=== PATIENT | male | born 1940 | race Caucasian/White ===

== ENCOUNTER 2022-06-20 11:41 | Inpatient (IN) | payer MEDICARE, OTHER ==
[~2022-06-20 11:41] MED LIST: Iopamidol 300 61% 100 ML VIAL FS ONE
[2022-06-20 12:46] LABS: #Monocytes 0.4 10x3/uL (0.0-1.1); #Neutrophils 7.4 10x3/uL (1.5-8.4); %Basophils 0.5 % (0.0-2.0); %Eosinophils 0.3 % (0.0-6.0); %Neutrophils 82.9 % (40.0-75.0); Hemoglobin 13.1 g/dL (13.5-17.5); Mean Corpuscular HGB CONC 34.7 g/dL (32.0-36.0); Mean Corpuscular Hemoglobin 30.8 pg (27.0-33.0); Mean Corpuscular Volume 88.9 fl (81.2-95.1); Mean Platelet Volume 9.9 fl (7.4-10.4); Platelet Count 242 10x3/uL (150-450); RBC Distribution Width 14.2 % (11.5-14.5); Red Blood Cell (RBC) Count 4.25 10x6/uL (4.32-5.72); White Blood Cell (WBC) Count 8.9 10x3/uL (3.5-10.5)
[2022-06-20] MEDS ORDERED: Ondansetron PF 4 MG/2 ML Vial ONE (12:58)
[2022-06-20 13:00] LABS: Bilirubin Neg (Negative); Blood, Urine 10 (Negative); Clarity Clear (Clear); Glucose, Urine (Dipstick) 250 mg/dL (Negative); Ketone, Urine 50 mg/dL (Negative); Leukocyte 100 (Negative); Nitrite Negative (Negative); Protein, Urine (Dipstick) 100 mg/dl (Neg-Trace); Urobilinogen Normal mg/dL (Less than 2); pH, Urine 6.5 (5.0-9.0)
[2022-06-20 13:03] LABS: ALT (SGPT) 37 U/L (8-55); AST (SGOT) 30 U/L (5-34); Albumin 4.7 g/dL (3.4-4.8); Alkaline Phosphatase 58 U/L (40-110); Anion Gap 24 mmol/L (10-20); BUN (Urea Nitrogen) 16 mg/dL (8.4-25.7); Bilirubin, Total 0.5 mg/dL (0.2-1.2); CK (CPK) 84 U/L (30-200); Calc. Creatinine Clearance 0 mL/min (70-130); Calcium 9.4 mg/dL (7.8-10.44); Carbon Dioxide 19 mmol/L (23-31); Chloride 96 mmol/L (98-107); Estimated GFR 73; Globulin 3.4 g/dL (2.4-3.5); Glucose 236 mg/dL (83-110); Lipase 45 U/L (8-78); Potassium 4.2 mmol/L (3.5-5.1); Protein, Total 8.1 g/dL (5.8-8.1); Sodium 135 mmol/L (136-145)
[2022-06-20 13:17] LABS: RBC/HPF 0-3 HPF (0-3); Squamous Epithelial 0-3 HPF (0-3)
[2022-06-20 13:19] LABS: Bacteria/HPF 2+ HPF (None Seen)
[2022-06-20] MEDS ORDERED: Vancomycin HCl 500 MG VIAL ONE (13:43)
[2022-06-20] MEDS ORDERED: Cefepime 2 GM VIAL ONE (13:43)
[2022-06-20] MEDS ORDERED: Dextrose 50% Abboject 50 ML SYRINGE SLOW IVP PRN (14:27)
[2022-06-20] MEDS ORDERED: HumaLOG 300 UNITS/3 ML VIAL SC PRN ×2 (14:27)
[2022-06-20] MEDS ORDERED: Ondansetron PF 4 MG/2 ML Vial IVP PRN (14:27)
[2022-06-20] MEDS ORDERED: Dextrose 5% in Water 1,000 ML IV PRN (14:27)
[2022-06-20] MEDS ORDERED: Ondansetron ODT 4 MG TAB PO PRN (14:27)
[2022-06-20] MEDS ORDERED: Electrolyte Replacement Protocol 1 EACH FS SCH (14:45)
[2022-06-20 15:32] LABS: Lactic Acid 5.4 mmol/L (0.5-2.2)
[2022-06-20 15:41] LABS: SARS-CoV-2 NAA Rapid Test DETECTED (NotDetected)
[2022-06-20] MEDS ORDERED: Benzonatate 100 MG CAP PO PRN (15:53)
[2022-06-20 16:33] VITALS: BMI 28.3
[2022-06-20] MEDS ORDERED: Ventolin HFA Inhaler 60 PUFF INHALER INH PRN (16:35)
[2022-06-20] MEDS: Sodium Chloride 0.9% 1,000 ML IV SCH ×2 (17:03→22:57)
[2022-06-20 20:32] LABS: Lactic Acid 3.2 mmol/L (0.5-2.2)
[2022-06-20] MEDS: Metoprolol Tartrate 25 MG TAB PO SCH (20:45)
[2022-06-20] MEDS: Nystatin Cream 15 GM TUBE TOP SCH (20:45)
[2022-06-20] MEDS: Cefepime 1 GM in Sodium Chloride 0.9% 100 ML IVPB SCH (20:45)
[2022-06-20] MEDS ORDERED: Famotidine/PF 20 mg/2ml Vial SLOW IVP SCH (21:00)
[2022-06-20] MEDS ORDERED: Cefepime 2 GM in Sodium Chloride 0.9% 100 ML IVPB SCH (21:00)
[2022-06-21] MEDS: Sodium Chloride 0.9% 1,000 ML IV SCH ×3 (04:02→16:03)
[2022-06-21 04:14] LABS: #Eosinphils 0.1 10x3/uL (0.0-0.5); #Monocytes 0.6 10x3/uL (0.0-1.1); #Neutrophils 4.3 10x3/uL (1.5-8.4); %Basophils 0.4 % (0.0-2.0); %Eosinophils 1.7 % (0.0-6.0); %Lymphocytes 28.7 % (18.0-47.0); %Monocytes 8.6 % (0.0-10.0); %Neutrophils 60.5 % (40.0-75.0); Hemoglobin 11.9 g/dL (13.5-17.5); Mean Corpuscular HGB CONC 34.8 g/dL (32.0-36.0); Mean Corpuscular Hemoglobin 30.5 pg (27.0-33.0); Mean Corpuscular Volume 87.7 fl (81.2-95.1); Mean Platelet Volume 9.7 fl (7.4-10.4); Platelet Count 248 10x3/uL (150-450); RBC Distribution Width 14.4 % (11.5-14.5); White Blood Cell (WBC) Count 7.2 10x3/uL (3.5-10.5)
[2022-06-21] MEDS: Acetaminophen 325 MG TAB PO PRN ×2 (04:21→19:50)
[2022-06-21 04:23] LABS: Anion Gap 15 mmol/L (10-20); BUN (Urea Nitrogen) 10 mg/dL (8.4-25.7); Calc. Creatinine Clearance 71 mL/min (70-130); Calcium 8.5 mg/dL (7.8-10.44); Carbon Dioxide 24 mmol/L (23-31); Chloride 101 mmol/L (98-107); Estimated GFR 87; Glucose 145 mg/dL (83-110); Potassium 3.6 mmol/L (3.5-5.1); Sodium 136 mmol/L (136-145)
[2022-06-21] MEDS ORDERED: Losartan 25 MG TAB PO SCH (04:45)
[2022-06-21] MEDS ORDERED: Vancomycin HCl 1 GM in Sodium Chloride 0.9% 250 ML 250 ML IVPB SCH (08:00)
[2022-06-21] MEDS ORDERED: Zinc Sulfate 220 MG CAP PO SCH (09:00)
[2022-06-21] MEDS ORDERED: Ascorbic Acid 500 mg Chewable Tablet PO SCH (09:00)
[2022-06-21] MEDS ORDERED: Cholecalciferol (Vitamin D3) 400 UNITS TAB PO SCH (09:00)
[2022-06-21] MEDS: Enoxaparin Sodium 40 MG/0.4 ML SYRINGE SC SCH (09:44)
[2022-06-21] MEDS: Cefepime 1 GM in Sodium Chloride 0.9% 100 ML IVPB SCH ×2 (09:44→21:56)
[2022-06-21] MEDS: Aspirin 81 mg Enteric Coated Tablet PO SCH (09:45)
[2022-06-21] MEDS: Metoprolol Tartrate 25 MG TAB PO SCH ×2 (09:45→21:56)
[2022-06-21] MEDS: Nystatin Cream 15 GM TUBE TOP SCH ×2 (10:19→22:00)
[2022-06-21 14:00] LABS: Lactic Acid 1.4 mmol/L (0.5-2.2)
[2022-06-21] MEDS ORDERED: Famotidine/PF 20 mg/2ml Vial SLOW IVP SCH (21:00)
[2022-06-22] MEDS: Sodium Chloride 0.9% 1,000 ML IV SCH (03:00)
[2022-06-22] MEDS: Metoprolol Tartrate 25 MG TAB PO SCH (05:31)
[2022-06-22 05:58] LABS: #Basophils 0.1 10x3/uL (0.0-0.2); #Eosinphils 0.3 10x3/uL (0.0-0.5); #Monocytes 0.5 10x3/uL (0.0-1.1); #Neutrophils 2.8 10x3/uL (1.5-8.4); %Basophils 0.9 % (0.0-2.0); %Eosinophils 4.4 % (0.0-6.0); %Lymphocytes 34.8 % (18.0-47.0); %Monocytes 9.2 % (0.0-10.0); %Neutrophils 50.5 % (40.0-75.0); Hemoglobin 12.4 g/dL (13.5-17.5); Mean Corpuscular HGB CONC 34.8 g/dL (32.0-36.0); Mean Corpuscular Hemoglobin 30.6 pg (27.0-33.0); Mean Corpuscular Volume 87.9 fl (81.2-95.1); Mean Platelet Volume 10.1 fl (7.4-10.4); Platelet Count 267 10x3/uL (150-450); RBC Distribution Width 14.2 % (11.5-14.5); Red Blood Cell (RBC) Count 4.05 10x6/uL (4.32-5.72); White Blood Cell (WBC) Count 5.6 10x3/uL (3.5-10.5)
[2022-06-22 06:10] LABS: Lactic Acid 0.9 mmol/L (0.5-2.2)
[2022-06-22 06:12] LABS: Anion Gap 16 mmol/L (10-20); BUN (Urea Nitrogen) 7 mg/dL (8.4-25.7); Calc. Creatinine Clearance 66 mL/min (70-130); Calcium 8.7 mg/dL (7.8-10.44); Carbon Dioxide 24 mmol/L (23-31); Chloride 103 mmol/L (98-107); Estimated GFR 82; Glucose 152 mg/dL (83-110); Sodium 139 mmol/L (136-145)
[2022-06-22] MEDS: Cefepime 1 GM in Sodium Chloride 0.9% 100 ML IVPB SCH (08:15)
[2022-06-22] MEDS: Aspirin 81 mg Enteric Coated Tablet PO SCH (08:15)
[2022-06-22] MEDS: Enoxaparin Sodium 40 MG/0.4 ML SYRINGE SC SCH (08:15)
[2022-06-22] MEDS: Nystatin Cream 15 GM TUBE TOP SCH (08:16)
[2022-06-22] MEDS ORDERED: Losartan 25 MG TAB PO PRN (09:16)
[2022-06-22] MEDS ORDERED: Losartan 25 MG TAB PO SCH (10:00)
[2022-06-22 13:23] VITALS: BP 183/108; TEMP 97.8
[2022-06-22] MEDS ORDERED: Famotidine/PF 20 mg/2ml Vial SLOW IVP SCH (14:00)
== END 2022-06-22 14:30 | disposition home or self-care (01) | DRG 871 ==
LOC: CSHERS 11:41 → CSHTELE 15:06
PROVIDERS: ADMIT Family Medicine; ATTEND Internal Medicine
DX: A41.9 Sepsis, unspecified organism (principal); R65.21 Severe sepsis with septic shock; U07.1 COVID-19; N30.00 Acute cystitis without hematuria; E87.20 Acidosis, unspecified; I10 Essential (primary) hypertension; E78.5 Hyperlipidemia, unspecified; E11.9 Type 2 diabetes mellitus without complications; Z98.52 Vasectomy status; Z79.84 Long term (current) use of oral hypoglycemic drugs; Z79.899 Other long term (current) drug therapy
CPT/HCPCS: 36415; 36416; 74177; 80048; 80053; 81003; 81015; 82550; 83605; 83690; 84484; 85025; 86140; 87040; 87086; 93005; 94760; 96361; 96365; 96367; 96375; J0692; J1650; J1815; J2405; J3370; J3490; J7050; Q9967; S0028; U0002